=== PATIENT | female | born 1965 | race Caucasian/White ===

== ENCOUNTER 2019-07-06 10:02 | Outpatient (CLI) | payer BC ==
--- NOTE | 2019-07-06 15:04 | NM ---
Three-phase bone scan: HISTORY: Pain related to internal orthopedic prosthetic device FINDINGS: Patient was injected with 30.6 mCi of technetium 99m MDP intravenously. Perfusion flow images appear unremarkable. Immediate images demonstrate no significant focal increase d activity. Some generalized increased activity in the proximal left femur around the region of the prosthesis, n onspecific. I favor this to not represent significant infection, although if that is a concern, follow-up nuclear medicine white blood cell scan and joint aspiration might be considered. The remain marci of the bony skeleton appears unremarkable. IMPRESSION: Minimal increased activity in the proximal left femur at the location of the prosthesis. This could r epresent some potential loosening. If there is concern for infection, follow-up hip joint aspiration and nuclear medicine white blood cell scan might give additional information.
== END 2019-07-06 10:03 | disposition home or self-care (01) ==
LOC: NM 10:02
PROVIDERS: ATTEND Specialist
DX: T84.84XA Pain due to internal orthopedic prosthetic devices, implants and grafts, initial encounter (principal)
CPT/HCPCS: 78315; A9503